=== PATIENT | female | born 1995 | race African-American/Black ===

== ENCOUNTER 2017-11-27 12:35 | Emergency (ER) | payer BC ==
[2017-11-27] MEDS ORDERED: Acetaminophen 500 MG TAB ONE (14:50)
--- NOTE | 2017-11-27 15:02 | RAD ---
THERE VIEWS CERVICAL SPINE: Date: 11-27-17 Provided Clinical History: Neck strain. FINDINGS: There is no evidence for fracture or traumatic subluxation. No prevertebral soft tissue swelling appa rent. The visualized lung apices appear clear. IMPRESSION: No radiographic evidence for fracture or traumatic subluxation. POS: [facility]
== END 2017-11-27 15:07 | disposition home or self-care (01) ==
LOC: ERS 12:35
DX: R10.12 Left upper quadrant pain (principal); E66.9 Obesity, unspecified; V43.62XA Car passenger injured in collision with other type car in traffic accident, initial encounter; V43.63XA Car passenger injured in collision with pick-up truck in traffic accident, initial encounter
CPT/HCPCS: 72040

== ENCOUNTER 2018-01-12 13:01 | Emergency (ER) | payer BC, OTHER | END 2018-01-12 14:32 | disposition home or self-care (01) | LOC: ERS 13:01 | DX: B07.0 Plantar wart (principal); R60.0 Localized edema; E66.9 Obesity, unspecified | CPT/HCPCS: 99283 ==

== ENCOUNTER 2018-01-27 07:26 | Emergency (ER) | payer BC | END 2018-01-27 08:04 | disposition home or self-care (01) | LOC: ERS 07:26 | DX: J06.9 Acute upper respiratory infection, unspecified (principal); E66.9 Obesity, unspecified | CPT/HCPCS: 99283 ==

== ENCOUNTER 2018-03-12 22:13 | Emergency (ER) | payer BC | END 2018-03-12 22:50 | disposition home or self-care (01) | LOC: ERS 22:13 | DX: M79.672 Pain in left foot (principal); E66.9 Obesity, unspecified | CPT/HCPCS: 99283 ==

== ENCOUNTER 2018-08-25 01:05 | Emergency (ER) | payer BC | END 2018-08-25 02:28 | disposition left against medical advice (07) | LOC: ERS 01:05 | DX: Z53.21 Procedure and treatment not carried out due to patient leaving prior to being seen by health care provider (principal) ==

== ENCOUNTER 2019-09-11 14:26 | Emergency (ER) | payer OTHER, SELFPAY ==
[2019-09-11] MEDS ORDERED: HYDROcodone/Acetaminophen 5/325 mg Tablet ONE (15:28)
--- NOTE | 2019-09-11 15:55 | RAD ---
Exam: XR Foot Lt 3 View STANDARD HISTORY: Swelling and pain, ulcer. COMPARISON: None FINDINGS: No acute fracture, dislocation, or other acute osseous abnormality is identified. IMPRESSION: No acute osseous abnormality is identified.
--- NOTE | 2019-09-11 15:56 | RAD ---
Exam: XR Foot Rt 3 View STANDARD HISTORY: Right foot swelling and pain, ulcer. COMPARISON: None FINDINGS: There is minimal soft tissue irregularity seen at the medial aspect of the right great toe. No underl kaushal osseous irregularity is identified. No acute fracture, dislocation, or other acute osseous abnormality is identified. IMPRESSION: No acute osseous abnormality is identified. If there is concern for osteomyelitis, MRI with and witho ut IV contrast would be more sensitive study for further evaluation.
[2019-09-11 16:36] LABS: Hemoglobin 12.7 g/dL (12.0-16.0); Mean Corpuscular HGB CONC 33.4 g/dL (32.0-36.0); Mean Corpuscular Hemoglobin 32.5 pg (27.0-31.0); Mean Corpuscular Volume 97.2 fL (78.0-98.0); Mean Platelet Volume 7.9 fL (7.4-10.4); Platelet Count 190 thou/uL (130-400); White Blood Cell (WBC) Count 7.8 thou/uL (4.8-10.8)
[2019-09-11 16:43] LABS: Albumin 3.8 g/dL (3.5-5.0)
[2019-09-11 16:44] LABS: Chloride 109 mmol/L (98-107); Potassium 3.9 mmol/L (3.5-5.1); Sodium 139 mmol/L (136-145)
[2019-09-11 16:45] LABS: Calcium 9.1 mg/dL (7.8-10.44); Globulin 3.4 g/dL (2.4-3.5); Glucose 69 mg/dL (70-105); Protein, Total 7.2 g/dL (6.0-8.3)
[2019-09-11 16:47] LABS: Anion Gap 12 mmol/L (10-20); Bilirubin, Total 0.8 mg/dL (0.2-1.2); Carbon Dioxide 22 mmol/L (22-29)
[2019-09-11 16:48] LABS: Alkaline Phosphatase 83 U/L (40-110)
[2019-09-11 16:49] LABS: BUN (Urea Nitrogen) 13 mg/dL (7.0-18.7); Calc. Creatinine Clearance 0 mL/min (70-130); Estimated GFR-MDRD Greater than 90
[2019-09-11 16:50] LABS: AST (SGOT) 15 U/L (5-34)
[2019-09-11 16:51] LABS: ALT (SGPT) 10 U/L (8-55); Band 3 % (5-11); Eosinophils 1 % (0-10); Lymphocytes 28 % (21-51); MDiff Complete? YES; Monocytes 4 % (0-10); Neutrophil 63 % (42-75); Platelet Morphology Comment Appears Adequate; RBC Morphology Normal; Reactive Lymphocytes 1 % (0-10)
[2019-09-11] MEDS ORDERED: Vancomycin 1 GM/200 ML BAG ONE (16:55)
[2019-09-11] MEDS ORDERED: Cefepime 1 GM VIAL ONE ×2 (16:55→18:03)
--- NOTE | 2019-09-11 18:12 | MRI ---
MRI OF THE RIGHT FOOT WITHOUT CONTRAST: 09/11/19 COMPARISON: Right foot radiograph 09/11/19. HISTORY: Swelling and pain in the right foot. Right foot ulcer. TECHNIQUE: Multiplanar and multisequence MRI images were obtained in the right foot without and with IV contrast . FINDINGS: There is edema in the right foot which is more prominent along the dorsal aspect. There appears to be a wound in the region of the plantar aspect of the foot near the great toe metatarsophalangeal joint . No low T1 signal abnormality is seen within any of the bones of the foot to suggest osteomyelitis. No significant enhancement is seen of any of the visualized bones. Evaluation of the toes is limited se condary to difficulty with fat suppression. No focal fluid collection is seen within the soft tissues of the foot. IMPRESSION: No obvious evidence of osteomyelitis. POS: [facility]
== END 2019-09-11 20:55 | disposition home or self-care (01) ==
LOC: ERS 14:26
DX: L97.519 Non-pressure chronic ulcer of other part of right foot with unspecified severity (principal); B35.1 Tinea unguium
CPT/HCPCS: 36415; 36416; 80053; 85025; 87040; 87070; 87205; 96365; J0692; J3370